=== PATIENT | female | born 1990 | race Hispanic/Latino ===

== ENCOUNTER → 2019-07-15 | Outpatient (CLI) | payer BC ==
[~2019-07-15] MED LIST: IOPAMIDOL 370 MG/ML 200 ML INFUS..BTL INJ ONE; KEFLEX250 MG PO; SODIUM CHLORIDE 0.9% 50ML 50 ML ONE; ULTRACET TABLE1 EACH PO
--- NOTE | 2019-07-15 19:15 | Diagnostic Imaging Report ---
EXAM: CT Abdomen and Pelvis WITH contrast INDICATION: Acute right upper quadrant and right lower quadrant pain. Nausea and vomiting. COMPARISON: None. TECHNIQUE: Abdomen and pelvis were scanned utilizing a multidetector helical scanner from the lung base to the pubic symphysis after administration of IV contrast. Coronal and sagittal reformations were obtained. Routine protocol was performed. Scan was performed when during portal venous phase. IV CONTRAST: 100 cc Isovue-300 ORAL CONTRAST: Water RADIATION DOSE: Total DLP: 400.58 mGy*cm Estimated effective dose: (DLP x 0.015 x size factor) mSv COMPLICATIONS: None FINDINGS: LINES and TUBES: None. LOWER THORAX: Unremarkable HEPATOBILIARY: No focal hepatic lesions. No biliary ductal dilation. GALLBLADDER: There are cholecystectomy clips. SPLEEN: No splenomegaly. PANCREAS: No focal masses or ductal dilatation. ADRENALS: No adrenal nodules KIDNEYS/URETERS: Kidneys enhance symmetrically. No hydronephrosis. No cystic or solid mass lesions. No stones. GI TRACT: No abnormal distention, wall thickening, or evidence of bowel obstruction. The appendix is slightly prominent especially, measuring up to 9 mm in diameter. There is mild stranding of the periappendiceal fat, as well as well as slightly prominent right lower quadrant lymph nodes, findings concerning for early acute appendicitis. PELVIC ORGANS/BLADDER: Unremarkable. LYMPH NODES: No lymphadenopathy. VESSELS: Unremarkable. PERITONEUM / RETROPERITONEUM: No free air or fluid. BONES: Unremarkable. SOFT TISSUES: Unremarkable. IMPRESSION: 1. Findings concerning for early acute noncomplicated appendicitis. Recommend surgical consultation. Discussed with Christie Garcia with Dr. Adina marques at 7:00 PM on 07/15/2019. Signed by: Dr. Tae Mcneil M.D. on 07/15/2019 7:12 PM
== END ==
LOC: CT 16:50
PROVIDERS: ATTEND Family Medicine
DX: R10.11 Right upper quadrant pain (principal); R10.31 Right lower quadrant pain
CPT/HCPCS: 74177; Q9967

== ENCOUNTER 2019-07-16 17:18 | Observation (INO) | payer BC, OTHER ==
[~2019-07-16] VITALS: Ht 165.1 cm; Wt 76.2 kg
--- NOTE | 2019-07-16 16:30 | NUR ---
The pt. arrived from 's office with comp acute appendicitis. she reports no family or personal history of diseases. She is a direct admit and has been consented for surgery and is maintained n p o . She is to receive iv fluids and antibiotics.
[~2019-07-16 17:18] MED LIST changes: +DEXAMETHASONE SOD PHOS INJ 4 MG/ML VIAL ONE; +FENTANYL CITRATE/PF 100MCG/2 ML INJ ONE; -IOPAMIDOL 370 MG/ML 200 ML INFUS..BTL INJ ONE; +LIDOCAINE HCL 2% LOCAL INJ 5 ML SDV VIAL INJ ONE; +MIDAZOLAM HCL 2 MG/2 ML VIAL ONE; +ONDANSETRON HCL INJ 2MG/ML 2ML 2 MG/ML VIAL ONE; +PROPOFOL IV EMULSION 10 MG/ML 20 ML VIAL ONE; +ROCURONIUM BROMIDE 10 MG/ML 5ML VIAL IV ONE; +SEVOFLURANE INHAL SOLN 250 ML PEN BTL ONE; -SODIUM CHLORIDE 0.9% 50ML 50 ML ONE; -ULTRACET TABLE1 EACH PO
--- OUTSIDE RECORDS SUMMARY | 2019-07-16 17:22 | XMS REPORT | Continuity of Care Document ---
Author Author [facility] t Organization [facility] Address [address] [place] [address] [place] [id number] Phone Unavailable Care Team Providers Care Hiv Cts Specialist Name Role Phone Claribel HOLDEN Attphys Unavailable Problems This patient has no known problems. Allergies, Adverse Reactions, Alerts This patient has no known allergies or adverse reactions. Medications This patient has no known medications. Procedures This patient has no known procedures. Results Test Description Test Time Test Comments Results Result Comments Source CT ABDOMEN/PELVIS W 2019-07-15 18:57:[address] [address] Patient Name: PAUL HARE MR #: [id number] : 1990 Age/Sex: 29/F Req #: [id number] Adm Physician: Ordered by: REVA HOLDEN DO Report #: [id number] Location: CT Room/Bed: Procedure: [id number] CT/CT ABDOMEN/PELVIS W Exam Date: Exam Time: REPORT STATUS: Signed EXAM: CT Abdomen and Pelvis WITH contrast INDICATION: Acute right upper quadrant and right lower quadrant pain. Nausea and vomiting. COMPARISON: None. TECHNIQUE: Abdomen and pelvis were scanned utilizing a multidetector helical scanner from the lung base to the pubic symphysis after administration of IV contrast. Coronal and sagittal reformations were obtained. Routine protocol was performed. Scan was performed when during portal venous phase. IV CONTRAST: 100 cc Isovue-300 ORAL CONTRAST: Water RADIATION DOSE: Total DLP: 400.58 mGy*cm Estimated effective dose: (DLP x 0.015 x size factor) mSv COMPLICATIONS: None FINDINGS: LINES and TUBES: None. LOWER THORAX: Unremarkable HEPATOBILIARY: No focal hepatic lesions. No biliary ductal dilation. GALLBLADDER: There are cholecystectomy clips. SPLEEN: No splenomegaly. PANCREAS: No focal masses or ductal dilatation. ADRENALS: No adrenal nodules KIDNEYS/URETERS: Kidneys enhance symmetrically. No hydronephrosis. No cystic or solid mass lesions. No stones. GI TRACT: No abnormal distention, wall thickening, or evidence of bowel obstruction. The appendix is slightly prominent especially, measuring up to 9 mm in diameter. There is mild stranding of the periappendiceal fat, as well as well as slightly prominent right lower quadrant lymph nodes, findings concerning for early acute appendicitis. PELVIC ORGANS/BLADDER: Unremarkable. LYMPH NODES: No lymphadenopathy. VESSELS: Unremarkable. PERITONEUM / RETROPERITONEUM: No free air or fluid. BONES: Unremarkable. SOFT TISSUES: Unremarkable. IMPRESSION: 1. Findings concerning for early acute noncomplicated appendicitis. Recommend surgical consultation. Discussed with Christie Garcia with Dr. Holden office at 7:00 PM on 07/15/2019. Signed by: Dr. Tae Kaminski M.D. on 07/15/2019 7:12 PM Dictated By: SAYRA KAMINSKI MD, MD 11 Transcribed By: PORFIRIO on 07/15/191911 COPY TO: REVA HOLDEN DO
[2019-07-16 17:45] VITALS: BP 117/62
[2019-07-16] MEDS ORDERED: ACETAMINOPHEN 325 MG TAB PO PRN (17:45)
[2019-07-16] MEDS ORDERED: MORPHINE SULFATE INJ 4 MG/ML INJ 1ML IV PRN (17:45)
[2019-07-16] MEDS: PIPER-TAZ 3.375 GM 50 ML IV SCH ×2 (18:00→23:05)
[2019-07-16 18:33] VITALS: BP 117/72
--- NOTE | 2019-07-16 18:49 | NUR ---
Report to the oncoming nurse.
[2019-07-16 19:36] LABS: BASOPHILS % 0.3 % (0.0-1.0); EOSINOPHILS # (AUTO) 0.1 (0.0-0.4); EOSINOPHILS % 0.9 % (0.0-6.0); HEMATOCRIT 35.7 % (34.2-44.1); HEMOGLOBIN 11.8 g/dL (12.0-16.0); LYMPHOCYTES # (AUTO) 2.4 (1.0-3.2); LYMPHOCYTES % 23.8 % (18.0-39.1); MEAN CORPUSCULAR HGB CONC 33.1 g/dL (31-35); MEAN CORPUSCULAR VOLUME 93.7 fL (81-99); MONOCYTES # (AUTO) 0.5 (0.2-0.8); MONOCYTES % 4.9 % (4.4-11.3); NEUTROPHILS # (AUTO) 7.1 (2.1-6.9); NEUTROPHILS % 69.7 % (38.7-80.0); PLATELET COUNT 272 x10e3/uL (140-360); RED BLOOD COUNT 3.81 x10e6/uL (3.6-5.1); RED CELL DISTRIBUTION WIDTH 11.5 % (11.7-14.4)
[2019-07-16 20:00] VITALS: BP 107/58
--- NOTE | 2019-07-16 20:27 | NUR ---
Received report from nurse. Walking rounds completed.
[2019-07-16] MEDS: DEXTROSE 5%/LACTATED RINGERS 1,000 ML IV SCH (22:00)
[2019-07-16] MEDS: ONDANSETRON HCL INJ 2MG/ML 2ML 2 MG/ML VIAL IV PRN (22:47)
--- NOTE | 2019-07-16 22:50 | NUR ---
Patient c/o pain to abd. Pain and nausea meds given as ordered by MD. Patient resting quiotly at thise time.
[2019-07-17] VITALS: BP 122/68
[2019-07-17 04:00] VITALS: BP 108/67
--- NOTE | 2019-07-17 04:50 | NUR ---
Patient resting quitly at this time. Continue mo itor.
--- NOTE | 2019-07-17 05:00 | NUR ---
Patient having procedure today. NPO, consent signed. Nt ariela eof time.
[2019-07-17] MEDS: PIPER-TAZ 3.375 GM 50 ML IV SCH (05:32)
[2019-07-17] MEDS: ONDANSETRON HCL INJ 2MG/ML 2ML 2 MG/ML VIAL IV PRN (06:34)
[2019-07-17] MEDS: DEXTROSE 5%/LACTATED RINGERS 1,000 ML IV SCH (06:35)
[2019-07-17 08:03] VITALS: BP 113/65
[2019-07-17 08:11] VITALS: BP 113/65
--- NOTE | 2019-07-17 09:30 | NUR ---
patient to OR at this time.
[2019-07-17] MEDS ORDERED: BUPIVACAINE HCL 0.5% INJ 30 ML VIAL INJ ONE (09:41)
[2019-07-17] MEDS ORDERED: DEXTROSE 5%/LACTATED RINGERS 1,000 ML IV SCH (10:30)
[2019-07-17] MEDS ORDERED: HYDROCODONE/APAP 5MG-325MG TAB PO PRN (10:30)
[2019-07-17] MEDS ORDERED: ONDANSETRON HCL INJ 2MG/ML 2ML 2 MG/ML VIAL IV PRN (10:30)
[2019-07-17] MEDS ORDERED: ACETAMINOPHEN 325 MG TAB PO PRN (10:30)
[2019-07-17] MEDS ORDERED: FENTANYL CITRATE/PF 100MCG/2 ML INJ ONE (10:50)
[2019-07-17] MEDS ORDERED: ULTRACET TABLE1 EACH PO (11:30)
[2019-07-17 12:01] VITALS: BP 114/60
--- NOTE | 2019-07-17 16:25 | Operative Report ---
DATE OF PROCEDURE: 07/17/2019 SURGEON: Emmanuel Murillo MD PREOPERATIVE DIAGNOSIS: Acute appendicitis. POSTOPERATIVE DIAGNOSIS: Acute appendicitis. PROCEDURE: Diagnostic laparoscopy, laparoscopic appendectomy. [employer]: None. ANESTHESIA: General. INDICATIONS AND FINDINGS: The patient is a 29-year-old female presented with complaints of abdominal pain for one day. Surgery, the patient was found with acutely inflamed appendix. TECHNIQUE: After adequate general endotracheal anesthesia, the patient in supine position, the abdomen was prepped and draped in sterile fashion with ChloraPrep solution. Skin in the umbilicus was infiltrated with 0.5% Marcaine. Incision was made in the umbilicus. Abdominal wall was elevated and Veress needle was introduced. Pneumoperitoneum was then created. A 10 mm trocar and cannula were then passed through this wound. Laparoscopic camera was introduced. Initial laparoscopy revealed no free fluid. The bowel was seen appeared normal. The appendix was not initially seen. A 12 mm trocar and cannula were placed suprapubically and a 5 mm trocar and cannula were placed in the right upper quadrant. These were placed under direct vision. Cecum was elevated. The appendix was identified, it appeared acutely inflamed. A window was created between the base of the appendix and mesoappendix. The base of the appendix was divided with Endo-VERA stapler close to the cecum. Mesoappendix was then divided with LigaSure device freeing the appendix completely. Appendix was placed into an Endopouch and brought out through the suprapubic cannula. Care was taken and it did not touch the abdominal wall. The area of appendectomy was inspected for hemostasis, which was seen to be adequate. It was irrigated with saline. All fluid aspirated and inspected for hemostasis, which was seen to be adequate. Instruments and cannulas were then removed. Pneumoperitoneum was evacuated. Wounds were then closed. Fascia in the umbilical and suprapubic wounds closed with 0 Vicryl. Skin to all wounds closed with 4-0 Vicryl in subcuticular fashion. Dermabond and sterile dressing were applied to each wound. The patient tolerated the procedure well. Estimated blood loss was 5 mL. There were no complications. All counts were correct. The patient was taken to the recovery room in satisfactory condition. MD MAT Vidal/STACI /[id number] cc: Dr. Holden
== END 2019-07-17 13:38 | disposition home or self-care (01) ==
LOC: MED/SURG 17:18 → INTOOBSV 17:18
PROVIDERS: ADMIT Surgery; ATTEND Surgery
DX: K35.80 Unspecified acute appendicitis (principal); Z83.3 Family history of diabetes mellitus
CPT/HCPCS: 36415 ×2; 44970; 84702; 85025; 87635; 88304; G0378 ×2; J1100; J2001; J2250; J2270; J2405 ×2; J2543 ×2; J2704; J3010 ×2; J7121 ×2

== ENCOUNTER 2019-12-20 19:38 | Emergency (ER) | payer BC ==
[~2019-12-20] VITALS: Ht 165.1 cm; Wt 80.7 kg
[~2019-12-20 19:38] MED LIST changes: -DEXAMETHASONE SOD PHOS INJ 4 MG/ML VIAL ONE; -FENTANYL CITRATE/PF 100MCG/2 ML INJ ONE; -LIDOCAINE HCL 2% LOCAL INJ 5 ML SDV VIAL INJ ONE; -MIDAZOLAM HCL 2 MG/2 ML VIAL ONE; -ONDANSETRON HCL INJ 2MG/ML 2ML 2 MG/ML VIAL ONE; -PROPOFOL IV EMULSION 10 MG/ML 20 ML VIAL ONE; -ROCURONIUM BROMIDE 10 MG/ML 5ML VIAL IV ONE; -SEVOFLURANE INHAL SOLN 250 ML PEN BTL ONE; +ULTRACET TABLE1 EACH PO
== END 2019-12-20 22:03 | disposition home or self-care (01) ==
LOC: FSED 20:30
DX: O26.92 Pregnancy related conditions, unspecified, second trimester (principal); R10.30 Lower abdominal pain, unspecified; V43.52XA Car driver injured in collision with other type car in traffic accident, initial encounter; Y92.488 Other paved roadways as the place of occurrence of the external cause
CPT/HCPCS: 81003; 99282